=== PATIENT | female | born 1995 | race Caucasian/White ===

== ENCOUNTER → 2018-09-08 | Outpatient (REF) | payer OTHER ==
[~2018-09-08] MED LIST: MAPA500T2 PO; MOTR200T44 PO; RANI15TA PO; TYLE325T5 PO; VITAPRTA PO
== END ==
LOC: M LAB REF 13:20
PROVIDERS: ATTEND Advanced Practice Midwife
DX: Z12.4 Encounter for screening for malignant neoplasm of cervix (principal)

== ENCOUNTER → 2018-09-27 | Outpatient (REF) | payer OTHER ==
[2018-09-27 19:38] LABS: CHLAMYDIA DNA AMPLIFICATION NEGATIVE (NEGATIVE); GC DNA AMPLIFICATION NEGATIVE (NEGATIVE)
== END ==
LOC: M LAB REF 17:04
PROVIDERS: ATTEND Advanced Practice Midwife
DX: Z30.430 Encounter for insertion of intrauterine contraceptive device (principal)

== ENCOUNTER 2018-11-10 09:16 | Emergency (ER) | payer OTHER ==
[~2018-11-10] VITALS: Ht 160 cm; Wt 85.7 kg
[2018-11-10 09:16] VITALS: BP 145/78
== END 2018-11-10 10:00 | disposition home or self-care (01) ==
LOC: M ED 09:16
DX: S09.90XA Unspecified injury of head, initial encounter (principal); H53.8 Other visual disturbances; W00.0XXA Fall on same level due to ice and snow, initial encounter; Y92.098 Other place in other non-institutional residence as the place of occurrence of the external cause

== ENCOUNTER → 2019-12-18 | Outpatient (CLI) | payer OTHER ==
--- NOTE | 2019-12-18 14:55 | REP ---
PELVIC SONOGRAPHY: HISTORY: Irregular menstruation. Comparison pelvic sonography April 05, 2012. FINDINGS: A somewhat retroflexed uterus is seen slightly prominent in size with dimensions of 9.0 x 4.5 x 5.9 cm. Endometrium is less than optimally seen. A T-shaped intrauterine device is noted within the central portion of the uterus. No focal uterine mass is seen. No free fluid is noted. A normal right ovary seen measuring 3.4 x 1.7 x 2.2 cm. Flow is observed in the right ovary with resistive index 0.5. The left ovary measures 3.1 x 2.0 x 2.7 cm. It contains a 1.7 cm complex follicle cyst. Doppler flow is present in the left ovary with resistive index 0.53. IMPRESSION: IUD in place in a somewhat retroflexed uterus. Otherwise negative pelvic sonography.
== END ==
LOC: M WHC 09:38
PROVIDERS: ATTEND Advanced Practice Midwife
DX: Z97.5 Presence of (intrauterine) contraceptive device (principal); N85.4 Malposition of uterus; N92.6 Irregular menstruation, unspecified

== ENCOUNTER → 2020-07-24 | Outpatient (REF) | payer OTHER, SELFPAY ==
[2020-07-24 17:46] LABS: BASO # 0.1 10^3/uL (0.0-0.2); BASO % 0.5 % (0.0-1.0); EOS # 0.1 10^3/uL (0.0-0.5); EOS % 0.5 % (0.0-3.0); HEMATOCRIT 43.2 % (36.0-47.0); HEMOGLOBIN 13.9 g/dl (12.0-15.5); LYMPH # 3.1 10^3/uL (1.5-5.0); LYMPH % 23.2 % (24.0-44.0); MEAN CORPUSCULAR HGB CONC 32.2 g/dl (32.0-36.5); MONO # 0.9 10^3/uL (0.0-0.8); MONO % 6.7 % (0.0-5.0); NEUTROPHILS % 68.3 % (36.0-66.0); PLATELET COUNT, AUTOMATED 462 10^3/uL (150-450); WHITE BLOOD COUNT 13.2 10^3/uL (4.0-10.0)
[2020-07-24 18:15] LABS: HCG, SERUM QUALITATIVE NEGATIVE (NEGATIVE)
[2020-07-24 18:21] LABS: FREE T4 1.16 NG/DL (0.76-1.46)
[2020-07-25 16:04] LABS: CHLAMYDIA DNA AMPLIFICATION POSITIVE (NEGATIVE); GC DNA AMPLIFICATION NEGATIVE (NEGATIVE)
== END ==
LOC: M PLALAB 14:10
PROVIDERS: ATTEND Advanced Practice Midwife
DX: T83.9XXA Unspecified complication of genitourinary prosthetic device, implant and graft, initial encounter (principal)

== ENCOUNTER → 2020-07-25 | Outpatient (CLI) | payer OTHER ==
--- NOTE | 2020-07-25 09:49 | REP ---
INDICATION: MENORRHAGIA/CK IUD PLACEMENT. COMPARISON: 12/18/2019. TECHNIQUE: Transabdominal and transvaginal scanning were performed. FINDINGS: Uterine dimensions are normal at 8.0 x 4.0 x 4.2 cm. Endometrial echo is 10 mm thick and centrally placed. No free fluid is seen in the cul-de-sac. IUD is seen within the endometrial canal. The bladder is empty. The right ovary has dimensions of 3.9 x 3.7 x 3.5 cm. The left ovary dimensions are normal as well at 2.6 x 1.7 x 2.3 cm. Blood flow is seen in each ovary with Doppler evaluation. A complex cyst of the right ovary measures 3.5 x 2.7 x 2.7 cm. IMPRESSION: IUD seen in the endometrial canal. Complex cystic structure right ovary 3.5 x 2.7 x 2.7 cm. No torsion or free fluid. <Electronically signed by Rashard Rosen > 07/25/20 [id number]
== END ==
LOC: M WHC 08:17
PROVIDERS: ATTEND Advanced Practice Midwife
DX: T83.9XXA Unspecified complication of genitourinary prosthetic device, implant and graft, initial encounter (principal)

== ENCOUNTER → 2020-10-07 | Outpatient (REF) | payer OTHER ==
[2020-10-07 23:05] LABS: CHLAMYDIA DNA AMPLIFICATION NEGATIVE (NEGATIVE); GC DNA AMPLIFICATION NEGATIVE (NEGATIVE)
== END ==
LOC: M SFHCWAGY 17:21
PROVIDERS: ATTEND Advanced Practice Midwife
DX: Z11.3 Encounter for screening for infections with a predominantly sexual mode of transmission (principal)
CPT/HCPCS: 87491; 87591; G0463

== ENCOUNTER → 2021-08-26 | Outpatient (REF) | payer OTHER | LOC: M LAB REF 12:35 | PROVIDERS: ATTEND Physician Assistant | DX: J02.9 Acute pharyngitis, unspecified (principal) ==

== ENCOUNTER → 2022-05-10 | Outpatient (REF) | payer OTHER ==
[~2022-05-10] MED LIST changes: +PARA1IUD IU
== END ==
LOC: M PLALAB 09:22
PROVIDERS: ATTEND Nurse Practitioner Family
DX: Z12.4 Encounter for screening for malignant neoplasm of cervix (principal)
CPT/HCPCS: 87624; G0123; G0463

== ENCOUNTER 2022-05-18 08:52 | Emergency (ER) | payer OTHER ==
[~2022-05-18] VITALS: Ht 160 cm; Wt 89.5 kg
[~2022-05-18 08:52] MED LIST changes: -PARA1IUD IU
[2022-05-18 08:53] VITALS: BP 173/89
[2022-05-18] MEDS ORDERED: PARA1IUD IU (08:58)
== END 2022-05-18 10:51 | disposition left against medical advice (07) ==
LOC: M ED 08:52
DX: Z53.21 Procedure and treatment not carried out due to patient leaving prior to being seen by health care provider (principal)

== ENCOUNTER 2022-05-21 09:26 | Emergency (ER) | payer OTHER ==
[~2022-05-21] VITALS: Ht 160 cm; Wt 89.6 kg
[~2022-05-21 09:26] MED LIST changes: +PARA1IUD IU
[2022-05-21] MEDS ORDERED: ONDANSETRON 4MG 2ML VIAL IV ONE (09:35)
[2022-05-21] MEDS ORDERED: NS 1,000 ML IV ONE (09:35)
[2022-05-21 10:14] LABS: BASO # 0.1 10^3/uL (0.0-0.2); BASO % 0.6 % (0.0-1.0); EOS # 0.1 10^3/uL (0.0-0.5); EOS % 1.1 % (0.0-3.0); HEMATOCRIT 41.8 % (36.0-47.0); HEMOGLOBIN 14.3 g/dl (12.0-15.5); LYMPH % 20.2 % (24.0-44.0); MEAN CORPUSCULAR HEMOGLOBIN 30.8 pg (27.0-33.0); MEAN CORPUSCULAR HGB CONC 34.2 g/dl (32.0-36.5); MEAN CORPUSCULAR VOLUME 90.1 fl (80.0-96.0); MONO # 0.6 10^3/uL (0.0-0.8); MONO % 6.3 % (2.0-8.0); NEUTROPHILS % 71.4 % (36.0-66.0); PLATELET COUNT, AUTOMATED 374 10^3/uL (150-450); RED BLOOD COUNT 4.64 10^6/uL (4.00-5.40); WHITE BLOOD COUNT 9.8 10^3/uL (4.0-10.0)
[2022-05-21 10:33] LABS: BLOOD UREA NITROGEN 8 MG/DL (7-18); CALCIUM LEVEL 9.7 MG/DL (8.5-10.1); CARBON DIOXIDE LEVEL 26 MEQ/L (21-32); CHLORIDE LEVEL 106 MEQ/L (98-107); CREATININE FOR GFR 0.75 MG/DL (0.55-1.30); GLOMERULAR FILTRATION RATE > 60.0 (>60); GLUCOSE, FASTING 92 MG/DL (70-100); POTASSIUM SERUM 3.6 MEQ/L (3.5-5.1); SODIUM LEVEL 138 MEQ/L (136-145)
[2022-05-21 13:22] LABS: ALBUMIN 3.8 GM/DL (3.2-5.2); ALT/SGPT 44 U/L (12-78); BILIRUBIN,DIRECT 0.2 MG/DL (0.0-0.2); BILIRUBIN,TOTAL 0.6 MG/DL (0.2-1.0); LIPASE 94 U/L (73-393)
[2022-05-21 14:06] VITALS: BP 137/83
== END 2022-05-21 14:10 | disposition home or self-care (01) ==
LOC: M ED 09:26
DX: R10.32 Left lower quadrant pain (principal); Z87.19 Personal history of other diseases of the digestive system; Z79.3 Long term (current) use of hormonal contraceptives

== ENCOUNTER → 2024-12-05 | Outpatient (REF) | payer BC | LOC: M LAB REF 15:04 | PROVIDERS: ATTEND Physician Assistant Medical | DX: J02.9 Acute pharyngitis, unspecified (principal) ==

== ENCOUNTER → 2025-07-25 | Outpatient (CLI) | payer BC ==
[2025-07-25 16:32] LABS: Trichomonas vaginalis (AMP) NOT DETECTED (NEGATIVE)
[2025-07-25 16:55] LABS: GC DNA AMPLIFICATION NEGATIVE (NEGATIVE)
[2025-07-25 17:52] LABS: ESTIMATED AVERAGE GLUCOSE 111.0 MG/DL (60-110)
[2025-07-25 18:02] LABS: FREE T4 1.59 NG/DL (0.89-1.76)
[2025-07-25 18:03] LABS: PROLACTIN 8.08 NG/ML
[2025-07-25 18:41] LABS: Trichomonas vaginalis (AMP) NOT DETECTED (NEGATIVE)
[2025-07-25 19:04] LABS: GC DNA AMPLIFICATION NEGATIVE (NEGATIVE)
== END ==
LOC: M PLALAB 14:08
PROVIDERS: ATTEND Student in an Organized Health Care Education/Training Program
DX: Z12.4 Encounter for screening for malignant neoplasm of cervix (principal); N92.6 Irregular menstruation, unspecified

== ENCOUNTER → 2025-08-27 | Outpatient (CLI) | payer BC | LOC: M WHC 12:04 | PROVIDERS: ATTEND Student in an Organized Health Care Education/Training Program | DX: N91.5 Oligomenorrhea, unspecified (principal) ==